=== PATIENT | female | born 1985 | race Caucasian/White ===

== ENCOUNTER 2018-06-17 15:23 | Emergency (ER) | payer SELFPAY ==
[~2018-06-17] VITALS: Ht 149.9 cm; Wt 53.1 kg
[2018-06-17 15:56] LABS: BASOPHILS # (AUTO) 0.1 K/uL (0.0-8.0); BASOPHILS % (AUTO) 0.6 % (0.0-2.0); EOSINOPHILS # (AUTO) 0.4 K/uL (0.0-0.7); HEMATOCRIT 42.2 % (31.2-41.9); HEMOGLOBIN 13.9 g/dL (10.9-14.3); LYMPHOCYTES # (AUTO) 3.1 K/uL (20.0-40.0); LYMPHOCYTES % (AUTO) 32.9 % (20.5-51.5); MEAN CORPUSCULAR HEMOGLOBIN 28.5 uug (24.7-32.8); MEAN CORPUSCULAR HGB CONC 33 g/dL (32.3-35.6); MEAN CORPUSCULAR VOLUME 86.9 fL (75.5-95.3); MONOCYTES # (AUTO) 0.7 K/uL (2.0-10.0); MONOCYTES % (AUTO) 7.4 % (0.0-11.0); NEUTROPHILS # (AUTO) 5.2 K/uL (1.8-8.9); NEUTROPHILS % (AUTO) 55.1 % (38.5-71.5); PLATELET COUNT (AUTO) 314 K/uL (179-408); RED BLOOD CELL COUNT(AUTO) 4.86 MIL/uL (3.63-4.92); WHITE BLOOD COUNT (AUTO) 9.4 K/uL (3.8-11.8)
[2018-06-17] MEDS ORDERED: HYDROMORPHONE 1 MG/1 ML DISP.SYRIN IM ONE (16:00)
[2018-06-17] MEDS ORDERED: LIDOCAINE VISCUS 2% 15 ML UDC MM ONE (16:00)
[2018-06-17] MEDS ORDERED: MAG HYDROX/AL HYDROX/SIMETH 30 ML LIQUID UDC PO ONE (16:00)
[2018-06-17 16:01] LABS: CREATININE 0.7 mg/dL (0.6-1.3); POTASSIUM 4.5 mmol/L (3.5-5.1)
[2018-06-17] MEDS ORDERED: HYDROMORPHONE 1 MG/1 ML DISP.SYRIN ONE (16:04)
[2018-06-17] MEDS ORDERED: LIDOCAINE VISCUS 2% 15 ML UDC ONE (16:05)
[2018-06-17] MEDS ORDERED: MAG HYDROX/AL HYDROX/SIMETH 30 ML LIQUID UDC ONE (16:05)
[2018-06-17 16:07] LABS: BILIRUBIN,DIRECT 0.1 mg/dL (0.0-0.2); BILIRUBIN,TOTAL 0.4 mg/dL (0.2-1.0); TOTAL PROTEIN, SERUM 7.2 g/dL (6.4-8.2)
[2018-06-17 16:13] LABS: *URINE HCG, QUAL NEGATIVE (NEGATIVE)
--- NOTE | 2018-06-17 16:30 | NUR ---
Patient discharged to home in stable conditon. Written and verbal after care instructions given. Patient verbalizes understanding of instructions.PT SAYS FEELS BETTER. PT WALKS IN STEADY GAIT. PT NOT DRIVING.ACCOMPANIED BY SO.
[2018-06-17 16:32] VITALS: BP 101/66
== END 2018-06-17 16:30 | disposition home or self-care (01) ==
LOC: ER 15:23
DX: K29.70 Gastritis, unspecified, without bleeding (principal); F17.290 Nicotine dependence, other tobacco product, uncomplicated
CPT/HCPCS: 36415; 76705; 80048; 80076; 83690; 84703; 85025; 96372; 99284; 99406; J1170; A4663

== ENCOUNTER 2022-06-29 19:43 | Emergency (ER) | payer MEDICAID ==
[~2022-06-29] VITALS: Ht 149.9 cm; Wt 52.6 kg
[2022-06-29] MEDS ORDERED: IV NORMAL SALINE 1000 ML BAG IV ONE (20:30)
[2022-06-29 20:32] LABS: HEMATOCRIT 40.2 % (31.2-41.9); MEAN CORPUSCULAR HEMOGLOBIN 28.6 uug (24.7-32.8); MEAN CORPUSCULAR VOLUME 85.9 fL (75.5-95.3); PLATELET COUNT (AUTO) 322 K/uL (179-408)
[2022-06-29 20:50] LABS: CREATININE 0.9 mg/dL (0.6-1.3)
[2022-06-29] MEDS ORDERED: MAGNESIUM SULFATE/D5W 100 ML IV SCH (21:00)
[2022-06-29] MEDS ORDERED: MAGNESIUM SULFATE/D5W 100 ML ONE (22:25)
--- NOTE | 2022-06-29 22:45 | NUR ---
Patient aox4, steady gait, no facial droop. No signs of distress noted.
--- NOTE | 2022-06-29 23:03 | NUR ---
Patient discharged to home in stable condition. Written and verbal after care instructions given. Patient verbalizes understanding of instructions. Stressed follow up or return to ER for worsening s/s.
[2022-06-29 23:05] VITALS: BP 115/85
[2022-06-29 23:29] LABS: *BILIRUBIN,URIN NEGATIVE (NEGATIVE); *BLOOD, URINE NEGATIVE (NEGATIVE); *CLARITY,URINE CLEAR (CLEAR); *COLOR,URINE YELLOW (YELLOW); *KETONES,URINE 2+ (NEGATIVE); *UROBILINOGEN,URINE 0.2 E.U./dl (NORMAL); LEUKOCYTE ESTERASE ,URINE TRACE (NEGATIVE); NITRITE, URINE NEGATIVE (NEGATIVE); UGLUCOSE NEGATIVE (NEGATIVE)
[2022-06-29 23:33] LABS: *URINE HCG, QUAL NEGATIVE (NEGATIVE)
[2022-06-29 23:38] LABS: BACTERIA,URINE FEW /HPF (NONE SEEN); RBC,URINE 0-3 /HPF (0-3)
[2022-06-29 23:39] LABS: SQUAMOUS EPITHELIAL CELL,UR MODERATE /HPF (NONE SEEN)
== END 2022-06-29 23:05 | disposition home or self-care (01) ==
LOC: ER 19:43
DX: S09.90XA Unspecified injury of head, initial encounter (principal); R55 Syncope and collapse; E83.42 Hypomagnesemia; T50.905A Adverse effect of unspecified drugs, medicaments and biological substances, initial encounter; F17.210 Nicotine dependence, cigarettes, uncomplicated; W18.39XA Other fall on same level, initial encounter; Y93.89 Activity, other specified; Y92.89 Other specified places as the place of occurrence of the external cause; Y99.8 Other external cause status
CPT/HCPCS: 99284; 96365; 96361; 80048; 81001; 84703; 83735; 85025; 36415; 93005; J3475; J7040; A4663